=== PATIENT | female | born 1940 | race Caucasian/White ===

== ENCOUNTER 2023-05-26 17:14 | Emergency (ER) | payer MEDICARE, BC ==
[2023-05-26] MEDS ORDERED: KETOROLAC 15 MG/ML VIAL IVP STA (17:47)
--- NOTE | 2023-05-26 17:47 | ED Physician Documentation ---
History of Present Illness - Stated complaint Stated Complaint: BACK PX,LOWER ABD PX - Chief complaint Chief Complaint: Back Pain - Additonal information Additional information: All 82-year-old female presents emergency department for evaluation of acute right lower quadrant abdominal and groin pain as well as low back pain. [place] is [place] the [place] from [place]. States she has been hiking a lot but has not had any falls or trauma. Has a history of scoliosis and mild back pain which she manages with yoga and stretching. This morning she woke up and had sudden pain in her lower abdomen. Subjective fevers. Some nausea no vomiting. No urinary symptoms. Denies any past surgical history of her abdomen. She has taken nothing for pain. Her son in attendance is concerned that she could have had appendicitis or a kidney stone. Review of Systems Constitutional: reports: Fever Cardiac: reports: Reviewed and negative Respiratory: reports: Reviewed and negative GI: reports: Abdominal Pain, Nausea. denies: Vomiting : reports: Reviewed and negative Skin: reports: Reviewed and negative PD PAST MEDICAL HISTORY - Allergies Allergies/Adverse Reactions: Allergies Allergy/AdvReac Type Severity Reaction Status Date / Time No Known Drug Allergies Allergy Verified 05/26/23 17:27 PD ED PE NORMAL - General General: Alert and oriented X 3, No acute distress, Well developed/nourished - HEENT HEENT: Atraumatic - Neck Neck: Supple, no meningeal sign - Cardiac Cardiac: RRR, No murmur - Respiratory Respiratory: No respiratory distress, Clear bilaterally - Abdomen Abdomen: Normal bowel sounds, Soft. No: Non tender (Mild right lower quadrant abdominal tenderness without guarding or rebound.) - Back Back: No spinal TTP (No midline thoracic or lumbar tenderness elicited. Normal gait. Negative straight leg exam bilaterally.) - Derm Derm: Normal color, Warm and dry. No: No rash - Extremities Extremities: No deformity - Neuro Neuro: Alert and oriented X 3 Eye Opening: Spontaneous Motor: Obeys Commands Verbal: Oriented GCS Score: 15 Results - Vitals Vitals: Vital Signs - 24 hr 05/26/23 17:18 Temperature 37.1 C Heart Rate 90 Respiratory 17 Rate Blood Pressure 145/57 H O2 Saturation 97 Oxygen O2 Source Room air - Labs Labs: Laboratory Tests 05/26/23 17:28 Urine Color YELLOW Urine Clarity CLEAR Urine pH 6.0 Ur Specific [place] 1.025 Urine Protein NEGATIVE Urine Glucose (UA) NEGATIVE Urine Ketones NEGATIVE Urine Occult Blood NEGATIVE Urine Nitrite NEGATIVE Urine Bilirubin NEGATIVE Urine Urobilinogen 0.2 (NORMAL) Ur Leukocyte Esterase TRACE H Urine RBC 0-5 Urine WBC 0-3 Ur Squamous Epith Cells FEW Squamous Urine Bacteria Rare Ur Microscopic Review INDICATED Urine Culture Comments INDICATED PD Medical Decision Making - ED course Complexity details: reviewed results, re-evaluated patient, d/w patient ED course: 82-year-old female presents emergency department for evaluation of sudden low back and right lower quadrant abdominal pain this morning. She reported subjective fevers no vomiting no chest pain no shortness of air. No urinary symptoms. [place] is [place] the [place]. On presentation to the emergency department she had a normal gait. No tenderness was elicited with palpation of the lower lumbar spine. There was very minimal tenderness elicited with palpation of the abdomen. However family was concerned that this could have been a presentation for a kidney stone, urinary infection or even appendicitis. Given her age I did offer laboratory testing including CBC, electrolytes and a CT scan as well as urinalysis. The patient declined all testing with the exception of the urinalysis. She feels that her symptoms are rather mild and she does not want further testing in the ER. Her urinalysis today shows mild amount of bacteria but the patient has no urinary symptoms. Culture is pending but patient declined antibiotics and we wi ll follow the culture. She was advised that she could return at any point should her symptoms worsen. At the time of last evaluation she was alert and well-appearing with no worrisome vital sign abnormalities. Departure - Departure Disposition: 01 Home, Self Care Clinical Impression: Right lower quadrant abdominal pain, Bacteriuria Comments: Crys goff are seen today in the emergency department because you developed some pain in your low back and abdomen this morning. You reported fevers. However you denied any vomiting or urinary symptoms. While here in the emergency department you are offered laboratory testing including CBC electrolytes and a CT scan. You declined all of this testing. You did allow us to evaluate your urine. You are free of any urinary symptoms and there was a small amount of bacteria in the urine but this may be simply because it was a clean-catch. A urine culture is pending and we will notify you if you do need to be started on antibiotics. At this time it is not clear what caused your symptoms earlier this morning. It could have been anything ranging from a kidney stone, appendicitis, bowel obstruction, or even cancers. Without definitive testing I cannot answer why you had the symptoms. If at any point you feel your symptoms are worsening you are free to return immediately to the ER for reevaluation. I wish you well in your travels.
[2023-05-26 18:30] LABS: BILIRUBIN,URINE NEGATIVE (NEGATIVE); GLUCOSE, URINE (UA) NEGATIVE (NEGATIVE); KETONES,URINE (UA) NEGATIVE (NEGATIVE); LEUKOCYTE ESTERASE, URINE TRACE (NEGATIVE); NITRITE,URINE NEGATIVE (NEGATIVE); OCCULT BLOOD,URINE NEGATIVE (NEGATIVE); PROTEIN,URINE NEGATIVE (NEGATIVE); UROBILINOGEN,URINE 0.2 (NORMAL) E.U./dL (NORMAL)
[2023-05-26 18:31] LABS: BACTERIA,URINE Rare /HPF (None Seen); CLARITY,URINE CLEAR (CLEAR); RBC,URINE 0-5 /HPF (0-5); SQUAMOUS EPITHELIAL CELL,UR FEW Squamous (<= Few); WBC,URINE 0-3 /HPF (0-5)
[2023-05-26 19:12] VITALS: BP 166/85; O2SAT 98
== END 2023-05-26 19:04 | disposition home or self-care (01) ==
LOC: ED 17:14
DX: R10.31 Right lower quadrant pain (principal); R82.71 Bacteriuria
CPT/HCPCS: 80053; 81001; 81003; 83690; 85025; 87077; 87086; 87181; 99283; 99284